=== PATIENT | male | born 1940 | race Caucasian/White ===

== ENCOUNTER 2018-08-11 13:59 | Inpatient (IN) | payer MEDICARE, BC ==
[~2018-08-11] VITALS: Ht 182.9 cm; Wt 100.0 kg
[2018-08-11] MEDS ORDERED: AVAPRO150 MG PO (17:27)
[2018-08-11] MEDS ORDERED: NORVASC5 MG PO (17:28)
[2018-08-11] MEDS ORDERED: OMEPRAZOLE20 M1 PO (17:32)
[2018-08-11] MEDS ORDERED: ZYRTEC10 MG PO (17:33)
[2018-08-11] MEDS ORDERED: VITAMIN D5000 UNIT PO (17:34)
[2018-08-11] MEDS ORDERED: BAYER CHEWABLE81 MG PO (17:35)
[2018-08-11 18:25] VITALS: BP 130/86; Ht 182.9 cm; Wt 100.0 kg
[2018-08-11 19:54] LABS: ANION GAP 12.6 mmol/L (8-16); CALCIUM 9.2 mg/dL (8.5-10.1); CARBON DIOXIDE 27.4 mmol/L (21.0-32.0); CREATININE - SERUM 1.1 mg/dL (0.6-1.3)
[2018-08-11 20:00] VITALS: BP 122/85
[2018-08-12] VITALS: BP 131/86
[2018-08-12 04:00] VITALS: BP 147/91
[2018-08-12 08:36] VITALS: BP 140/84
[2018-08-12 10:38] LABS: BASOPHILS 0.2 % (0-2); EOSINOPHILS 0 % (0-7); HEMATOCRIT 42.7 % (42.0-54.0); HEMOGLOBIN 14.9 g/dL (13.5-17.5); LYMPHOCYTES 21.4 % (15-50); MCH 31.4 pg (26.0-34.0); MCHC 34.9 g/dL (31.0-37.0); MCV 89.9 fL (80.0-100.0); MEAN PLATELET VOLUME 9.9 fL (7.4-10.4); MONOCYTES 0.2 % (2-11); NEUTROPHILS 78.2 % (40-80); PLATELET COUNT 186 10x3/uL (130-400); RBC 4.75 10x6/uL (4.20-6.10); RDW 11.9 % (11.5-14.5); WBC 5.3 10x3/uL (4.8-10.8)
[2018-08-12 10:51] LABS: ALBUMIN 3.5 g/dL (3.4-5.0); ANION GAP 15.8 mmol/L (8-16); BILIRUBIN - TOTAL 0.52 mg/dL (0.2-1.3); CALCIUM 9.2 mg/dL (8.5-10.1); CARBON DIOXIDE 23.1 mmol/L (21.0-32.0); CREATININE - SERUM 1.2 mg/dL (0.6-1.3); POTASSIUM - SERUM 3.9 mmol/L (3.5-5.1); PROTEIN - SERUM 7.3 g/dL (6.4-8.2)
[2018-08-12 13:15] VITALS: BP 147/83
[2018-08-12 16:44] VITALS: BP 145/92
[2018-08-12 20:00] VITALS: BP 125/78
[2018-08-13] VITALS (8 sets, daily range): BP systolic 111–133; BP diastolic 55–82
[2018-08-13 06:10] LABS: BASOPHILS 0.1 % (0-2); EOSINOPHILS 0 % (0-7); HEMATOCRIT 40.4 % (42.0-54.0); HEMOGLOBIN 13.8 g/dL (13.5-17.5); IMMATURE GRANULOCYTES 0.3 % (0-5); LYMPHOCYTES 23.2 % (15-50); MCH 30.7 pg (26.0-34.0); MCHC 34.2 g/dL (31.0-37.0); MCV 89.8 fL (80.0-100.0); MEAN PLATELET VOLUME 10.4 fL (7.4-10.4); MONOCYTES 5.4 % (2-11); PLATELET COUNT 191 10x3/uL (130-400); RDW 12.2 % (11.5-14.5)
[2018-08-13 06:12] LABS: WBC 11.7 10x3/uL (4.8-10.8)
[2018-08-13 06:43] LABS: ALBUMIN 3.2 g/dL (3.4-5.0); ANION GAP 16.5 mmol/L (8-16); BILIRUBIN - TOTAL 0.55 mg/dL (0.2-1.3); CALCIUM 8.8 mg/dL (8.5-10.1); CARBON DIOXIDE 22.9 mmol/L (21.0-32.0); CREATININE - SERUM 1.1 mg/dL (0.6-1.3); POTASSIUM - SERUM 4.4 mmol/L (3.5-5.1); PROTEIN - SERUM 6.5 g/dL (6.4-8.2)
[2018-08-14 04:00] VITALS: BP 133/83
[2018-08-14 04:39] LABS: BASOPHILS 0.4 % (0-2); EOSINOPHILS 2.2 % (0-7); HEMATOCRIT 38.5 % (42.0-54.0); IMMATURE GRANULOCYTES 0.1 % (0-5); MCH 30.5 pg (26.0-34.0); MCHC 33.8 g/dL (31.0-37.0); MCV 90.4 fL (80.0-100.0); MEAN PLATELET VOLUME 10.2 fL (7.4-10.4); MONOCYTES 5.9 % (2-11); NEUTROPHILS 41.4 % (40-80); PLATELET COUNT 184 10x3/uL (130-400); RBC 4.26 10x6/uL (4.20-6.10); RDW 12.5 % (11.5-14.5)
[2018-08-14 04:49] LABS: INR 1.16 (0.85-1.17); PROTIME 14.3 SECONDS (11.6-15.0); WBC 7.6 10x3/uL (4.8-10.8)
[2018-08-14 04:53] LABS: BILIRUBIN - TOTAL 0.73 mg/dL (0.2-1.3); CALCIUM 8.3 mg/dL (8.5-10.1); CARBON DIOXIDE 25.1 mmol/L (21.0-32.0); CREATININE - SERUM 1.1 mg/dL (0.6-1.3)
[2018-08-14 04:54] LABS: ANION GAP 13.6 mmol/L (8-16); POTASSIUM - SERUM 3.7 mmol/L (3.5-5.1)
[2018-08-14 07:57] VITALS: BP 119/76
[2018-08-14 08:12] VITALS: BP 112/74
[2018-08-14 08:27] VITALS: BP 127/79
[2018-08-14 12:25] VITALS: BP 136/73
== END 2018-08-14 17:53 | disposition home or self-care (01) | DRG 392 ==
LOC: D.MS 13:59 → D.SDCHOLD 18:31 → D.MS 18:33
PROVIDERS: Family Medicine; Family Medicine Adult Medicine; Internal Medicine Gastroenterology
PROC: 0DBE8ZZ Excision of Large Intestine, Via Natural or Artificial Opening Endoscopic (ICD-10-PCS; principal; 2018-08-14 05:51)
DX: R10.31 Right lower quadrant pain (principal); I10 Essential (primary) hypertension; K21.9 Gastro-esophageal reflux disease without esophagitis; N28.1 Cyst of kidney, acquired; R91.1 Solitary pulmonary nodule